=== PATIENT | male | born 1975 ===

== ENCOUNTER 2019-03-31 10:30 | Observation (INO) ==
--- NOTE | 2019-03-31 11:35 | Diag Imaging Result Doc PS360 ---
EXAM: FLAT/UPRIGHT ABD/1 VIEW CHEST - 03/31/2019 HISTORY: abd pain x 1 month prob w/constipation TECHNIQUE: Supine and upright abdomen one view chest COMPARISON: None. FINDINGS: The bowel gas pattern is unremarkable. There is some retained fecal debris in the left colon, but this does not appear excessive. There is no free air identified. There is possible sclerosis noted at the left pedicle of L5 or overlapping facet, of uncertain significance. Upright chest shows normal heart size. The lungs appear clear. There is no pleural effusion or pneumothorax identified. IMPRESSION: Unremarkable bowel gas pattern. Some retained fecal debris in left colon, which is not obviously excessive. Possible sclerosis of the left pedicle of L5 or overlapping facet, of uncertain significance. If further imaging evaluation is desired, dedicated lumbar spine radiographs, including oblique views, are recommended. No evidence of acute cardiopulmonary disease. Electronically signed by David Cm 03/31/2019 11:33 AM
[2019-03-31 11:59] LABS: BASO# 0.04 X1000 (0.0-0.2); BASO% 0.4 % (0.0-0.8); EOS# 0.32 X1000 (0.0-0.7); EOS% 3.2 % (0.0-10.0); HEMATOCRIT 40.4 % (42.0-52.0); HEMOGLOBIN 13.8 g/dL (14.0-18.0); IMM GRAN# 0.04 X1000 (0.0-0.04); IMM GRAN% 0.4 % (0.0-0.5); LYMPH# 1.98 X1000 (1.2-3.4); LYMPH% 19.8 % (20.5-51.1); MCH 30.5 PG (27-31); MCHC 34.2 g/dL (33-37); MCV 89.4 FL (81-99); MONO# 0.83 X1000 (0.11-0.59); MONO% 8.3 % (1.7-9.3); MPV 9.7 FL (7.4-10.4); NEUT% 67.9 % (42.2-75.2); PLT 250 X1000 (130-400); RBC 4.52 XMIL (4.7-6.1); RDW 12.6 % (11.5-14.5); WBC 10.01 X1000 (4.8-10.8)
[2019-03-31 12:01] LABS: BILIRUBIN URINE NEGATIVE (NEGATIVE); BLOOD URINE NEGATIVE (NEGATIVE); CLARITY CLEAR (CLEAR); COLOR YELLOW; GLUCOSE URINE NEGATIVE (NEGATIVE); KETONE URINE NEGATIVE (NEGATIVE); LEUKOCYTES URINE NEGATIVE (NEGATIVE); NITRITE URINE NEGATIVE (NEGATIVE); PROTEIN URINE NEGATIVE (NEGATIVE); SP GRAVITY URINE 1.025; UROBILINOGEN URINE NORMAL
[2019-03-31 12:07] LABS: URINE BACTERIA NEGATIVE /HFP; URINE EPITHELIAL CELLS <10 /HPF (<10); URINE RBC <10 /HPF (<10); URINE SOURCE CLEAN CATCH; URINE WBC <10 /HPF (<10)
[2019-03-31] MEDS ORDERED: ASPIRIN PO ONE (12:10)
--- NOTE | 2019-03-31 12:15 | PROVIDER DOCUMENTATION ---
HPI-General Adult - General Chief Complaint: General Adult Stated Complaint: ABD PAIN Time Seen by Provider: 03/31/19 11:18 Source: patient Allergies/Adverse Reactions: Patient Allergies Allergy/AdvReac Type Severity Reaction Status Date / Time No Known Allergies Allergy Verified 03/31/19 10:55 Home Medications: Home Medication List Medication Instructions Recorded Confirmed Last Taken Type NK [No Home Medications] 03/31/19 03/31/19 Unknown History - History of Present Illness -Gen Adult Nature of Presenting Problems: Patient is a 44yo M who presents with numerous complaints. Reports intermittent abdominal pain x1 month which has been worsening. Patient also reports he has not been able to have a BM for a "few days." Also reports he has been experiencing intermittent "heart" pain for the past few years. 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 When patient asked where the location of his "heart" pain is, he points to his upper back, L chest, and upper abdomen. Patient denies any known medical history. Patient does not appear to be in any distress upon examination. Denies fever/chills, SOB, n/v, diaphoresis, cough, nausea/vomiting. Non-toxic in appearance. Location of Pain/Injury: reports: chest, abdomen Pain Radiation: reports: no radiation Quality of Pain: reports: aching, cramping Severity: reports: mild Onset/Duration: reports: other ("years" for chest pain; 1 month for abdominal pain) Timing: reports: intermittent Context/Activities at Onset: reports: none Modifying Factors: improves with: nothing Associated Symptoms: reports: chest pain. denies: arm pain, back/neck pain, cough, diaphoresis, diarrhea, fatigue, fever/chills, genitourinary problems, loss of appetite, nausea, shortness of breath, vomiting, weakness, trouble walking Similar Symptoms Previously?: Yes (hx of intermittent "heart" pain) Recently seen or treated by another doctor?: No Review of Systems - Adult - REVIEW OF SYSTEMS - ADULT Constitutional: reports: no symptoms reported. denies: chills, fever Eyes: reports: no symptoms reported Ears, Nose, Mouth & Throat: reports: no symptoms reported. denies: ear pain, throat pain Cardiovascular: reports: see HPI, chest pain. denies: palpitations, syncope Respiratory: reports: no symptoms reported. denies: cough, dyspnea on exertion, shortness of breath Gastrointestinal: reports: see HPI, abdominal pain, constipation. denies: diarrhea, nausea, poor appetite, vomiting Genitourinary: reports: no symptoms reported Musculoskeletal: reports: no symptoms reported Integumentary: reports: no symptoms reported Neurological: reports: no symptoms reported. denies: dizziness/vertigo, headache/migraines Psychiatric: reports: no symptoms reported Endocrine: reports: no symptoms reported Past History - Adult - PAST MEDICAL HISTORY-ADULT Review of Records: reports: Nursing Assessment Review, Medications Reviewed - IMMUNIZATION STATUS Childhood Immunizations: See Nurse Assessment Flu Vaccine: See Nurse Assessment - FAMILY HISTORY Family History: reviewed, not pertinent Physical Exam-General - PHYSICAL EXAM-ADULT Initial Vital Signs Reviewed: Yes - CONSTITUTIONAL General Appearance: appears well, alert, no apparent distress. negative: lethargic, slow to respond, obtunded - EYES Eyes: PERRL/EOMI, pink conjunctivae. negative: EOM palsy, scleral icterus - HEAD, EARS, NOSE, MOUTH & THROAT HENMT: normocephalic/atraumatic, moist mucous membranes - NECK Neck: non-tender, full range of motion, supple, normal inspection. negative: C- spine tenderness, limited range of motion - RESPIRATORY Respiratory: chest non-tender, lungs clear, normal breath sounds, no pleuratic chest pain, no respiratory distress, no accessory muscle use. negative: crackles, rales, rhonchi, stridor, wheezing, retractions, splinting - CARDIOVASCULAR Cardiovascular: regular rate, rhythm, no gallop - GASTROINTESTINAL (ABDOMEN) Abdominal Exam: normal bowel sounds, non tender, soft, no organomegaly, no pulsatile mass. negative: distended, guarding, rigid, rebound, tenderness, McBurney's point tenderness, Rovsing's sign - LYMPHATIC Lymphatic: no adenopathy - MUSCULOSKELETAL Back Exam: normal inspection, no CVA tenderness, no vertebral tenderness. negative: decreased range of motion, vertebral tenderness Extremity: normal range of motion, non-tender, normal gait, normal inspection, pelvis stable - SKIN Integumentary: normal color, warm/dry. negative: cyanosis, jaundice, pallor - NEUROLOGIC Neurologic: grossly normal. negative: abnormal gait, aphasia, EOM palsy - PSYCHIATRIC Psych/Mental Status: normal mood/affect, normal thought content, normal thought process, oriented x 3 Progress - PLAN OF CARE/RESULTS Progress/Plan/Lab Results: Vital Signs - 8 hr 03/31/19 10:44 Temperature 98 F Pulse Rate 70 Respiratory Rate 18 Blood Pressure 116/73 O2 Sat by Pulse Oximetry 99 Laboratory Results - last 24 hr 03/31/19 03/31/19 11:45 11:47 WBC 10.01 RBC 4.52 L Hgb 13.8 L Hct 40.4 L MCV 89.4 MCH 30.5 MCHC 34.2 RDW Std Deviation 12.6 Plt Count 250 MPV 9.7 Immature Gran % (Auto) 0.4 Neut % (Auto) 67.9 Lymph % (Auto) 19.8 L [place] % (Auto) 8.3 Eos % (Auto) 3.2 Baso % (Auto) 0.4 Immature Gran # (Auto) 0.04 Neut # (Auto) 6.80 H Lymph # (Auto) 1.98 [place] # (Auto) 0.83 H Eos # (Auto) 0.32 Baso # (Auto) 0.04 Urine Source CLEAN CATCH Urine Color YELLOW Urine Clarity CLEAR Urine pH 5.0 Ur Specific [place] 1.025 Urine Protein NEGATIVE Urine Ketones NEGATIVE Urine Blood NEGATIVE Urine Nitrite NEGATIVE Urine Bilirubin NEGATIVE Urine Urobilinogen NORMAL Urine Microscopic RBC <10 Urine WBC NEGATIVE Urine Microscopic WBC <10 Ur Epithelial Cells <10 Urine Bacteria NEGATIVE Urine Glucose NEGATIVE Orders Category Date Time Status FLAT/UPRIGHT ABD/1 VIEW CHEST [RAD] Stat Exams 03/31/19 10:57 Completed AMYLASE [CHEM] Stat Lab 03/31/19 11:47 Received CBC WITH ELECTRONIC DIFF [HEME] Stat Lab 03/31/19 11:47 Completed CK PROFILE [SP CHEM] Stat Lab 03/31/19 12:10 Ordered COMPREHENSIVE METABOLIC PANEL [CHEM] Stat Lab 03/31/19 11:47 Received LIPASE [CHEM] Stat Lab 03/31/19 11:47 Received TROPONIN T Stat Lab 03/31/19 12:[address] W/POSS RFLX CULT [URINALYSIS] Stat Lab 03/31/19 11:45 Completed Aspirin Med 03/31/19 12:10 Once 325 mg PO NOW ONE EKG [EKG] Stat Ther 03/31/19 12:09 Ordered Discussed with patient need for admission for observation regarding CP. Patient agrees with admission for evaluation. Result Diagrams: 03/31/19 11:47 03/31/19 11:47 - EKG 1 Time of EKG reading by physician:: 12:24 EKG Read and Signed by:: Jaguar Olson EKG Interpretation (*Must complete 3 of following elements*): Abnormal Rate: 61 Rhythm: NSR [place]: normal QRS: normal [place] Interval: normal ST Wave: elevated (peaked T waves in leads V3 & V4) Prior EKG Comparison: no prior EKG - XRAY 1 XRAY: Bilateral XRAY Study: Chest, Abdomen Impression: See EMR Report ([facility] - [address] [facility], [address], [place] [address] [facility] - [address] [place] [address] Department of Imaging Patient: HENRIETTA FERNANDEZ Date: 03/31/19#: [id number] : 1975ADM Status: PRE ERAcct#: [id number] Age/Sex: 44/MRoom/Bed: Loc: P.ED Ordering Physician: Jaguar Olson MD Family Physician: None,PCP Reason for Procedure: abd pain x 1 month prob w/constipation Signed EXAM: FLAT/UPRIGHT ABD/1 VIEW CHEST - 03/31/2019 HISTORY: abd pain x 1 month prob w/constipation TECHNIQUE: Supine and upright abdomen one view chest COMPARISON: None. FINDINGS: The bowel gas pattern is unremarkable. There is some retained fecal debris in the left colon, but this does not appear excessive. There is no free air identified. There is possible sclerosis noted at the left pedicle of L5 or overlapping facet, of uncertain significance. Upright chest shows normal heart size. The lungs appear clear. There is no pleural effusion or pneumothorax identified. IMPRESSION: Unremarkable bowel gas pattern. Some retained fecal debris in left colon, which is not obviously excessive. Possible sclerosis of the left pedicle of L5 or overlapping facet, of uncertain significance. If further imaging evaluation is desired, dedicated lumbar spine radiographs, including oblique views, are recommended. No evidence of acute cardiopulmonary disease. Electronically signed by David Cm 03/31/2019 11:33 AM 03/31/19 1133 Interpreting Physician: David Cm MD Dictated Date/Time: 03/31/19 1127 cc: Jaguar Olson MD; None,PCP) - CONSULTS/PCP/HOSPITALIST Notification #1 *Consult/PCP/Hospitalist*: [place] [facility] Time Discussed: 14:20 Reason/Comments: CP; peaked T waves EKG Consult Disposition: Admit Departure - Departure Date of Disposition Decision: 03/31/19 Time of Disposition Decision: 14:26 DIAGNOSIS: T wave inversion in EKG Chest pain Qualifiers: Chest pain type: unspecified Qualified Code(s): R07.9 - Chest pain, unspecified Constipation Qualifiers: Constipation type: unspecified constipation type Qualified Code(s): K59.00 - Constipation, unspecified Disposition: ADMITTED INPATIENT 09 Certified Medical Emergency: Emergent Condition: Stable Referrals and Follow-Ups: None,PCP [Primary Care Provider] - - Critical Care Note This patient required my direct & personal management of CC.: No Attestation - Physician/ JOHNNIE Attestation Patient care was provided by Advanced Practice Provider:: Yes Advanced Practice Provider:: Tiffany Wiggins Advanced Practice Provider documentation review:: The Mid-level provider documentation, treatment plan and medical decision making was reviewed by the physician who agrees with all treatment and medical decision making by the [facility]. The physician spent face to face time with patient:: No Advanced Practice Provider documentation review:: Supervising physician onsite and consulted in the evaluation and care of this patient. The physician did not have a face to face encounter with the patient. - HEART Score HEART Score: History: Slightly Suspicious HEART Score: ECG: Significant ST-Deviation HEART Score: Age: < or = 45 Years HEART Score: Risk Factors for Atherosclerotic Disease: 1 or 2 Risk Factors HEART Score: Troponin: < or = Normal Limit Total HEART Score:: 3
[2019-03-31 12:25] LABS: AGAP 10; ALBUMIN 4.4 g/dL (3.5-5.0); ALKALINE PHOSPHATASE 62 U/L (32-122); AMYLASE 48 U/L (20-200); BUN 14 mg/dL (8-22); CALCIUM 9.1 mg/dL (8.8-10.2); CHLORIDE 103 mmol/L (98-107); COSMO 277; CREATININE 0.7 mg/dL (0.7-1.2); ESTIMATED GFR > 60; GLUCOSE 112 mg/dL (70-104); GOT 17 U/L (10-34); GPT 9 U/L (10-44); LIPASE 26 U/L (13-60); POTASSIUM 4.6 mmol/L (3.5-5.1); SODIUM 138 mmol/L (136-145); TCO2 26 mmol/L (25-35); TOTAL PROTEIN 7.1 g/dL (6.3-8.3)
--- NOTE | 2019-03-31 14:19 | EKG Report ---
Test Performed on : 03/31/2019 12:24:15 PM Test Reason : CP Blood Pressure : / mmHG Vent. Rate : 061 BPM Atrial Rate : 061 BPM P-R Int : 174 ms QRS Dur : 084 ms QT Int : 382 ms P-R-T Axes : 055 062 048 degrees QTc Int : 384 ms Normal sinus rhythm. Early repolarization Normal ECG No previous ECGs available Unconfirmed Result
[2019-03-31] MEDS ORDERED: ZOFRAN IV PRN (15:12)
[2019-03-31] MEDS ORDERED: NITROGLYCERIN SL PRN (15:12)
[2019-03-31] MEDS ORDERED: TYLENOL PO PRN (15:12)
--- NOTE | 2019-03-31 17:03 | HISTORY AND PHYSICAL ---
CHIEF COMPLAINT: Constipation, abdominal pain, and chest pain. HISTORY OF PRESENT ILLNESS: This is a 44-year-old gentleman who presents to the emergency room complaining of intermittent chest pain that he has had for many years. He states that he has been worked up by cardiologists in the past and told everything was normal. He states that he has these episodes along with epigastric and upper abdominal cramping. Usually he is constipated at this time. He could name no exacerbating or alleviating factors. He has no shortness of breath, any nausea, vomiting, diaphoresis, palpitations. He also complains of intermittent abdominal pain that has been present for a month. He states that he has this pain when he is constipated. Once he has a bowel movement the pain does relieve. He describes this as a cramping type pain. He points to his umbilicus and upper abdomen as the area of pain. He denies any diarrhea, black or bloody vomitus or stools. PAST MEDICAL HISTORY: Chest pain. PAST SURGICAL HISTORY: Denies. SOCIAL HISTORY: He drinks alcohol. He denies any illicit drug or tobacco use. ALLERGIES: No known drug allergies. HOME MEDICATIONS: None. REVIEW OF SYSTEMS: Discussed with patient with pertinent positives stated in HPI. He denied any syncope, dizziness, palpitations, shortness of breath, cough, fever, chills, PND, orthopnea, fevers, any nausea, vomiting, diarrhea, black or bloody vomitus or stools, any hematuria, dysuria, frequency, urgency. PHYSICAL EXAMINATION: GENERAL: This is a 44-year-old gentleman who is sitting up in the bed, in no distress. VITAL SIGNS: Blood pressure is 121/68 with a heart rate of 64, respirations 18, temperature 97.8 degrees, with room air saturations 98 to 99. EYES: Pupils are equal, round, react to light. EOMs are intact. Sclerae anicteric. HENT: Head is normocephalic, atraumatic. Mucous membranes are moist. NECK: Supple with trachea midline. CARDIOVASCULAR: Regular rate and rhythm. S1, S2 appreciated. He has no lower extremity edema. Calves are nontender. Bilateral peripheral pulses palpable x4 extremities. PULMONARY: Breath sounds are clear. No increased work of breathing noted. Chest rises and falls symmetric with respiration. Chest wall is nontender to palpation. GASTROINTESTINAL: Abdomen is soft, nontender, nondistended with bowel sounds in all 4 quadrants. GENITOURINARY: He has no CVA or suprapubic tenderness. NEUROLOGIC: He is alert and oriented x3. SKIN: Warm and dry. LABS: WBC is 10, with hemoglobin 13.8, hematocrit 40.4, platelets of 250,000. Sodium 138, potassium 4.6, BUN 14, creatinine 0.7, with a glucose of 112. Urinalysis is essentially negative. Abdominal x-ray reveals unremarkable bowel-gas pattern. Retained fecal debris in the colon which is not obviously excessive. Chest x-ray reveals heart is normal in size. Lungs appear clear. No pleural effusion or pneumothorax identified. ASSESSMENT AND PLAN: Chest pain. Troponins have been negative in the emergency room x2. We will trend the troponins. Admit him on telemetry. Recheck an EKG in the morning. Check an echocardiogram. Start Prilosec 20 mg daily. Will check a CBC, CMP, lipid profile, and magnesium in the morning. Plan was discussed with Dr. Borjas. Further treatments pending hospital course. Dictated by ARLYN Yoo for Patrice Borjas MD cc: ARLYN Yoo MD
[2019-03-31] MEDS: MIRALAX PO SCH (19:08)
--- NOTE | 2019-03-31 19:55 | HISTORY AND PHYSICAL ---
ADDENDUM: Patient seen and examined by myself. Full note dictated and discussed with nurse practitioner. Patient presented the hospital with constipation, abdominal pain, and chest pain. We are going to admit him to the hospital to rule out [place]. So far, his enzymes have been negative. Hopefully, they will continue to be negative, and he can be discharged home over the next day or two. cc: Patrice Borjas MD
[2019-04-01 05:45] LABS: HEMATOCRIT 41.9 % (42.0-52.0); HEMOGLOBIN 14.1 g/dL (14.0-18.0); MCH 29.7 PG (27-31); MCHC 33.7 g/dL (33-37); MCV 88.4 FL (81-99); MPV 9.7 FL (7.4-10.4); RBC 4.74 XMIL (4.7-6.1); RDW 12.5 % (11.5-14.5); WBC 7.52 X1000 (4.8-10.8)
[2019-04-01 06:08] LABS: AGAP 9; ALBUMIN 4.3 g/dL (3.5-5.0); ALKALINE PHOSPHATASE 60 U/L (32-122); BUN 12 mg/dL (8-22); CALCIUM 8.8 mg/dL (8.8-10.2); CHLORIDE 101 mmol/L (98-107); COSMO 272; CREATININE 0.7 mg/dL (0.7-1.2); ESTIMATED GFR > 60; GLUCOSE 100 mg/dL (70-104); GOT 17 U/L (10-34); GPT 8 U/L (10-44); POTASSIUM 4.4 mmol/L (3.5-5.1); SODIUM 136 mmol/L (136-145); TCO2 26 mmol/L (25-35)
[2019-04-01 06:09] LABS: CHOLESTEROL 222 mg/dL (0-200); HDL 71 mg/dL (35-55); LDL 131 mg/dL; TRIGLYCERIDES 101 mg/dL (39-160); VLDL 20 mg/dL
[2019-04-01] MEDS ORDERED: PRILOSEC PO SCH (07:00)
[2019-04-01 07:36] VITALS: BP 137/73
--- NOTE | 2019-04-01 08:48 | EKG Report ---
Test Performed on : 03/31/2019 5:12:17 PM Test Reason : REPEAT Blood Pressure : / mmHG Vent. Rate : 060 BPM Atrial Rate : 060 BPM P-R Int : 202 ms QRS Dur : 084 ms QT Int : 386 ms P-R-T Axes : 068 069 038 degrees QTc Int : 386 ms Normal sinus rhythm. with sinus arrhythmia. Early repolarization Normal ECG When compared with ECG of 31-MAR-2019 12:24, (Unconfirmed) No significant change was found Confirmed by Mayo Reeves MD ([id number]) on 04/14/2019 3:27:19 PM
[2019-04-01] MEDS: MIRALAX PO SCH (09:48)
--- NOTE | 2019-04-01 17:51 | DISCHARGE SUMMARY ---
ADMISSION DATE: 03/31/2019 DISCHARGE DATE: 04/01/2019 DIAGNOSES: 1. Chest pain. 2. Epigastric and abdominal pain. 3. Constipation. DIAGNOSTICS: 1. Abdominal x-ray revealed unremarkable bowel gas pattern; retained fecal debris in the colon that is not obviously excessive. 2. EKG with sinus rhythm at a rate of 60 with early repolarization. HOSPITAL COURSE: Mr Dailey presented to the emergency room complaining of constipation, abdominal pain, and chest pain that had been present off and on for a month. He states that he has not taken anything to relieve the constipation nor had he been evaluated by his physician for this. 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 He ruled out by enzymes. EKGs x3 revealed sinus rhythm in the 60s with early repolarization. He was given MiraLAX for his constipation. He had a bowel movement and stated that his abdominal pain resolved. Thankfully, he is ready for discharge. DISCHARGE VITAL SIGNS: Blood pressure is 137/73 with a heart rate of 60 and respirations are 16. Temperature is 97.6 oral with room air saturations 98% to 100%. DISCHARGE EXAM: Cardiovascular: Regular rate and rhythm. S1 and S2 appreciated. Extremities: He has no lower extremity edema. Calves are nontender bilateral with peripheral pulses palpable x4 extremities. Pulmonary: Breath sounds are clear. No increased work of breathing noted. Chest rises and falls symmetrically with respiration. Gastrointestinal: Abdomen is soft, nontender, nondistended with bowel sounds in all four quadrants. Neurologic: He is alert and oriented x3. Skin: Is warm and dry. DISCHARGE MEDICATIONS: None. FOLLOWUP: His primary care provider in the next two to three weeks, sooner if needed. He was given a number to the physician referral line to obtain a provider that is taking patients, if he wishes. INSTRUCTIONS: He was instructed to return to the emergency room for any syncope, dizziness, chest pain, palpitations, shortness of breath, cough, temperature greater than 101, nausea, vomiting, diarrhea, constipation, black or bloody vomitus or stools, hematuria, dysuria, frequency, urgency. DISPOSITION: He is being discharged home in stable condition with family members. TIME SPENT: This is a greater than 30-minute discharge. Dictated by Mary J. Slaten, DENTAL RECEPTIONIST for Patrice Borjas MD cc: ARLYN Yoo MD
--- NOTE | 2019-04-01 18:38 | DISCHARGE SUMMARY ---
ADMISSION DATE: 03/31/2019 DISCHARGE DATE: 04/01/2019 DISCHARGE DIAGNOSES: 1. Constipation resolved. 2. Abdominal pain resolved. 3. Chest pain resolved. CONSULTATIONS: None. PROCEDURES: None. BRIEF HOSPITAL COURSE: The patient is a 44-year-old male who presented to the ER subsequently admitted to the hospital with chest pain, palpitations, constipation. Thankfully, his symptoms resolved. His enzymes were negative and therefore he will be discharged home. DISPOSITION: Patient will be discharged home to follow up outpatient with treatment facility of choice. Discussed with him that should his symptoms worsen or return, he certainly would need to come back to the ER. At that point, he would need to stay in the hospital over the weekend for a stress test on Thursday, but given that all of his symptoms have resolved and he is comfortable we will discharge him home. The patient will be discharged home and follow up outpatient with treatment facility of choice. Thirty minutes was spent in total care. No medications on discharge. cc: Patrice Borjas MD
== END 2019-04-01 10:10 | disposition home or self-care (01) ==
LOC: P.MEDSURG 10:30 → P.ED 10:30
PROVIDERS: ATTEND Family Medicine